=== PATIENT | male | born 1960 | race Caucasian/White ===

== ENCOUNTER 2020-09-25 07:57 | Day surgery (SDC) | payer OTHER ==
[~2020-09-25] VITALS: Ht 172.7 cm; Wt 76.7 kg
[2020-09-25 07:54] VITALS: BP 147/85
[2020-09-25 13:22] VITALS: BP 127/80
== END 2020-09-25 12:45 ==
LOC: GI 07:57 → DS 11:00 → OR 11:00 → GI 11:00
PROVIDERS: ATTEND Internal Medicine Gastroenterology
DX: R19.5 Other fecal abnormalities (principal); Z79.82 Long term (current) use of aspirin
CPT/HCPCS: 45378; J1200; J1610; J2250; J2310; J3010; J3490